=== PATIENT | female | born 1960 | race Caucasian/White ===

== ENCOUNTER 2018-04-16 18:59 | Emergency (ER) | payer OTHER ==
[~2018-04-16] VITALS: Ht 170.2 cm; Wt 54.9 kg
[~2018-04-16 18:59] MED LIST: BUTASPCAF PO; CODACE30 PO; GARLIC; GREEN TEA; METO10 PO; METPRE4DP PO; PRODEXEL PO; SULTRIDS PO; Ventolin/Prove6.7 GM INH; Zithromax250 MG PO
[2018-04-16] MEDS ORDERED: BENZ100A PO (19:11)
[2018-04-16] MEDS ORDERED: Mucinex600 MG PO (19:11)
[2018-04-16] MEDS ORDERED: ALBU90OI INH (19:11)
== END 2018-04-16 19:15 | disposition home or self-care (01) ==
LOC: ER 18:59
DX: J40 Bronchitis, not specified as acute or chronic (principal); F17.210 Nicotine dependence, cigarettes, uncomplicated; Z88.0 Allergy status to penicillin; Z88.5 Allergy status to narcotic agent; Z90.5 Acquired absence of kidney
CPT/HCPCS: 99283

== ENCOUNTER 2018-10-19 13:14 | Emergency (ER) | payer OTHER ==
[~2018-10-19] VITALS: Ht 167.6 cm; Wt 52.6 kg
[~2018-10-19 13:14] MED LIST changes: +ALBU90OI INH; +BENZ100A PO; +Mucinex600 MG PO
[2018-10-19] MEDS ORDERED: Ultram50 MG PO (14:32)
[2018-10-19] MEDS ORDERED: Voltaren100 GM TOP (14:32)
[2018-10-19] MEDS ORDERED: KETO10 PO (14:32)
== END 2018-10-19 14:41 | disposition home or self-care (01) ==
LOC: ER 13:14
DX: M16.11 Unilateral primary osteoarthritis, right hip (principal); Z88.5 Allergy status to narcotic agent; Z88.0 Allergy status to penicillin; F17.210 Nicotine dependence, cigarettes, uncomplicated
CPT/HCPCS: 73502; 96372; 99283-25; J1885

== ENCOUNTER 2019-03-02 11:15 | Emergency (ER) | payer OTHER ==
[~2019-03-02] VITALS: Ht 170.2 cm; Wt 53.1 kg
[~2019-03-02 11:15] MED LIST changes: +KETO10 PO; +Ultram50 MG PO; +Voltaren100 GM TOP
[2019-03-02] MEDS ORDERED: Chantix1 EACH (11:33)
== END 2019-03-02 13:16 | disposition home or self-care (01) ==
LOC: ER 11:15
DX: J02.9 Acute pharyngitis, unspecified (principal); Z88.5 Allergy status to narcotic agent; Z88.0 Allergy status to penicillin; Z87.891 Personal history of nicotine dependence
CPT/HCPCS: 87081; 87430; 99283; A9270-GY; J1100

== ENCOUNTER 2019-03-04 10:25 | Inpatient (IN) | payer OTHER ==
[~2019-03-04] VITALS: Ht 170.2 cm; Wt 53.8 kg
[~2019-03-04 10:25] MED LIST changes: +Chantix1 EACH
[2019-03-04 10:52] LABS: BASOPHILS ABSOLUTE AUTO 0.05 K/mm3 (0.00-0.23); BASOPHILS PERCENT AUTO 0 % (0-2); EOSINOPHILS ABSOLUTE AUTO 0.03 K/mm3 (0.00-0.68); EOSINOPHILS PERCENT AUTO 0 % (0-6); Hematocrit 44.8 % (33.0-51.0); IMMATURE GRAN ABSOLUTE AUTO 0.07 K/mm3 (0.00-0.10); IMMATURE GRAN PERCENT AUTO 1 % (0-1); LYMPHOCYTES ABSOLUTE AUTO 2.45 K/mm3 (0.84-5.20); LYMPHOCYTES PERCENT AUTO 16 % (21-46); MONOCYTES ABSOLUTE AUTO 1.87 K/mm3 (0.16-1.47); MONOCYTES PERCENT AUTO 12 % (4-13); Mean Corpuscular HGB 28.4 pg (26.0-34.0); Mean Corpuscular HGB Conc 31.3 g/dL (31.5-36.5); Mean Corpuscular Volume 91 fL (80-100); Mean Platelet Volume 9.5 fL (9.1-12.4); NEUTROPHILS ABSOLUTE AUTO 11.01 K/mm3 (1.96-9.15); NEUTROPHILS PERCENT AUTO 71 % (41-73); Platelet Count 316 K/mm3 (150-400); RDW Coefficient Variation 13.9 % (11.7-14.2); RDW Standard Deviation 46.8 fL (35.1-46.3); Red Blood Cell Count 4.93 M/mm3 (3.80-5.20); White Blood Cell Count 15.48 K/mm3 (4.00-11.30)
[2019-03-04 11:16] LABS: Alanine Aminotransfer (ALT/SGP 218 U/L (12-78); Albumin, Blood 3.2 g/dL (3.4-5.0); Albumin/Globulin Ratio 0.5 (0.8-1.8); Alk Phos 108 U/L (50-136); Anion Gap 6 mmol/L (6-16); Aspartate Aminotrans (AST/SGOT 147 U/L (12-37); Bilirubin, Total 0.6 mg/dL (0.1-1.0); Blood Urea Nitrogen 26 mg/dL (8-24); Bun/Creatinine Ratio 33.6 (12.0-20.0); CO2, Blood 23 mmol/L (21-32); Calcium, Blood 9.3 mg/dL (8.5-10.1); Chloride, Blood 106 mmol/L (98-108); Creatinine, Blood 0.77 mg/dL (0.40-1.00); Glomerular Filtration Rate >60 (60-); Glucose, Blood 109 mg/dL (70-99); Potassium, Blood 4.4 mmol/L (3.5-5.5); Sodium, Blood 135 mmol/L (136-145); Total Protein, Blood 9.2 g/dL (6.4-8.2)
--- NOTE | 2019-03-04 18:26 | NUR ---
SHIFT SUMMARY PATIENT ARRIVED TO UNIT BY WC. IV ACCESS. IV FLUIDS INFUSED WITHOUT ISSUE AT THIS TIME. PATIENT GENERALLY PLEASANT. COMPLAINTS OF PAIN WERE LOCALIZED TO THROAT. NO SOB AND VSS. REPORT RECEIVED FROM ED NURSE.
--- NOTE | 2019-03-05 04:07 | NUR ---
SHIFT SUMMARY NO ISSUES NOTED. PT HAD SOME DISCOMFORT AND TX PER EMAR. PT HAS SLEPT WELL T/O SHIFT. PT HAS ATE SOME W/O MUCH DIFFICULTY. PT THIS MORNING STATES SHE FEELS BETTER. PT CURRENTLY SLEEPING AND BREATHING EASY. CALL LIGHT IN REACH.
[2019-03-05 05:38] LABS: BASOPHILS ABSOLUTE AUTO 0.01 K/mm3 (0.00-0.23); BASOPHILS PERCENT AUTO 0 % (0-2); EOSINOPHILS PERCENT AUTO 0 % (0-6); Hematocrit 37.7 % (33.0-51.0); Hemoglobin 11.8 g/dL (11.5-16.0); IMMATURE GRAN ABSOLUTE AUTO 0.05 K/mm3 (0.00-0.10); IMMATURE GRAN PERCENT AUTO 0 % (0-1); LYMPHOCYTES ABSOLUTE AUTO 1.26 K/mm3 (0.84-5.20); LYMPHOCYTES PERCENT AUTO 11 % (21-46); MONOCYTES ABSOLUTE AUTO 0.94 K/mm3 (0.16-1.47); MONOCYTES PERCENT AUTO 8 % (4-13); Mean Corpuscular HGB 28.6 pg (26.0-34.0); Mean Corpuscular HGB Conc 31.3 g/dL (31.5-36.5); Mean Corpuscular Volume 92 fL (80-100); NEUTROPHILS ABSOLUTE AUTO 8.99 K/mm3 (1.96-9.15); NEUTROPHILS PERCENT AUTO 80 % (41-73); Platelet Count 267 K/mm3 (150-400); RDW Coefficient Variation 13.9 % (11.7-14.2); RDW Standard Deviation 47.1 fL (35.1-46.3); Red Blood Cell Count 4.12 M/mm3 (3.80-5.20); White Blood Cell Count 11.25 K/mm3 (4.00-11.30)
[2019-03-05 06:01] LABS: Alanine Aminotransfer (ALT/SGP 150 U/L (12-78); Albumin, Blood 2.5 g/dL (3.4-5.0); Albumin/Globulin Ratio 0.5 (0.8-1.8); Alk Phos 87 U/L (50-136); Anion Gap 8 mmol/L (6-16); Aspartate Aminotrans (AST/SGOT 85 U/L (12-37); Bilirubin, Total 0.3 mg/dL (0.1-1.0); Blood Urea Nitrogen 32 mg/dL (8-24); Bun/Creatinine Ratio 53.2 (12.0-20.0); CO2, Blood 20 mmol/L (21-32); Calcium, Blood 8.2 mg/dL (8.5-10.1); Chloride, Blood 112 mmol/L (98-108); Globulin, Blood 4.9 g/dL (2.2-4.0); Glomerular Filtration Rate >60 (60-); Glucose, Blood 189 mg/dL (70-99); Potassium, Blood 4.7 mmol/L (3.5-5.5); Sodium, Blood 140 mmol/L (136-145); Total Protein, Blood 7.4 g/dL (6.4-8.2)
--- NOTE | 2019-03-05 15:50 | NUR ---
Advance directive education/spiritual care visit conducted. Upon receiving an admit referral for advance directive education, I visit patient. I explain about the importance, content and process of the form and walk patient through the different sections and also provide a form for patient's life partner Beck. They display comprehension of the material and state they will fill it out and hand it in later. I then talk with Patient and Beck about their spiritual journey and hear of the pain and joys. I listen empathically, normalize patient's experience and provide spiritual guidance and prayer. Patient and Beck respond well and voice appreciation for the visit.
--- NOTE | 2019-03-05 18:04 | NUR ---
SUMMARY PT IS A/O X4, PLEASANT AFFECT, IND TO BR, UP AMBULATING IN [place]. SHE STATE CONTINUING SORE THROAT HOWEVER STATES MUCH IMPROVED, SHE HAS BEEN TOLERATING FULL LIQUID DIET W/O SIGNIFICANT PAIN, STATE EASIER TO SWALLOW WARM LIQUIDS SUCH SOUP RATHER THAN COLD. SHE HAS USED 1 DOSE FENTANYL 25MCG TODAY FOR PAIN RELIEF/CONTROL. IV ANTIBX CONTINUE W NS @ 100 ML/HR. VSS.
--- NOTE | 2019-03-05 18:26 | NUR ---
AFTER DINNER PT STATE INCREASING THROAT PAIN THAT RADIATES TO R EAR, 6/10, PRN FENTANYL 25MCG GIVEN.
--- NOTE | 2019-03-06 04:33 | NUR ---
SHIFT SUMMARY PT HAD SOME DISCOMFORT AND WAS TX PER EMAR. PT HAD NO OTHER ISSUES NOTED. PT SLEPT WELL T/O SHIFT. PT WENT FOR WALK ON UNIT BEFORE BED. PT IS EAGER TO GO HOME. PT CURRENTLY SLEEPING AND BREATHING EASY. CALL LIGHT IN REACH.
[2019-03-06] MEDS ORDERED: Vsl#3 Capsule1 EACH PO (09:38)
[2019-03-06] MEDS ORDERED: TRAM50 PO (09:38)
[2019-03-06] MEDS ORDERED: Clindamycin HC300 MG PO (09:39)
[2019-03-06] MEDS ORDERED: Prednisone10 MG PO (09:40)
--- NOTE | 2019-03-06 10:57 | NUR ---
SUMMARY/DISCHARGE DR ARAIZA IN TO SEE PT EARLY AM, STATE OK FOR D/C HOME TODAY. PT STATE FEELS READY TO GO HOME. NEW SCRIPTS FAXED TO [facility]. HARD COPY TRAMADOL SCRIPT PROVIDED TO PT. IV D/C INTACT. D/C INSTRUCT REVIEWED W PT, EMPHASIS ON F/U APPT W DR ALBARRAN (EENT). PT VERBALIZE UNDERSTANDING, SHE IS PLEASANT, APPRECIATIVE. STATE FRIEND WILL BE IN FOR TRANSPORTATION HOME, [employer] WILL PROVIDE W/C ESCORT FROM HOSP.
--- NOTE | 2019-03-06 13:08 | NUR ---
As patient and her fiance, Beck, are leaving after DC, I talk with them in the hallway. They mention the excellent care they have received and how they appreciate my visit with them yesterday. I help them find their way to where their car is parked.
== END 2019-03-06 11:55 | disposition home or self-care (01) | DRG 872 ==
LOC: ER 10:25 → MEDS 15:27 → ENPENDDIS 03-06 09:39 → MEDS 03-06 11:55
PROVIDERS: Emergency Medicine; Nurse Practitioner Acute Care; ADMIT Family Medicine
DX: A41.9 Sepsis, unspecified organism (principal); E87.1 Hypo-osmolality and hyponatremia; J36 Peritonsillar abscess; J44.9 Chronic obstructive pulmonary disease, unspecified; R74.0 Nonspecific elevation of levels of transaminase and lactic acid dehydrogenase [LDH]; M19.90 Unspecified osteoarthritis, unspecified site; E86.0 Dehydration; Z88.5 Allergy status to narcotic agent; Z88.0 Allergy status to penicillin; Z87.891 Personal history of nicotine dependence
CPT/HCPCS: 36415; 42700; 70491; 80053; 83605; 85025; 87040; 96361-59; 96365-59; 96367-59; 96375-59; 96376-59; 99285-25; J0696; J1100; J1650; J1885; J3010; J7030; Q9967

== ENCOUNTER 2019-07-16 19:46 | Emergency (ER) | payer OTHER ==
[~2019-07-16] VITALS: Ht 170.2 cm; Wt 54.9 kg
[~2019-07-16 19:46] MED LIST changes: +Chantix1 MG PO; +Clindamycin HC300 MG PO; +Prednisone10 MG PO; +TRAM50 PO; +Vsl#3 Capsule1 EACH PO
[2019-07-16] MEDS ORDERED: ALLERCLEAR10 MG PO (21:18)
[2019-07-16] MEDS ORDERED: KEFLEX500 MG PO (21:18)
== END 2019-07-16 21:27 | disposition home or self-care (01) ==
LOC: ER 19:46
DX: L73.9 Follicular disorder, unspecified (principal); L29.9 Pruritus, unspecified; Z88.0 Allergy status to penicillin; Z88.5 Allergy status to narcotic agent; Z87.891 Personal history of nicotine dependence
CPT/HCPCS: 99282; A9270-GY

== ENCOUNTER → 2021-02-04 | Outpatient (CLI) | payer OTHER ==
[~2021-02-04] MED LIST changes: +ALLERCLEAR10 MG PO; +ASPI81CH PO; +Amitriptyline H25 MG PO; +KEFLEX500 MG PO; +OXYC5 PO
== END | disposition home or self-care (01) ==
LOC: LAB SHORT 15:25 → LAB 15:25
DX: J02.9 Acute pharyngitis, unspecified (principal)
CPT/HCPCS: 87081

== ENCOUNTER → 2022-04-25 | Outpatient (CLI) | payer OTHER | END | disposition home or self-care (01) | LOC: LAB 14:56 → LAB SHORT 14:56 | DX: R82.90 Unspecified abnormal findings in urine (principal) | CPT/HCPCS: 87077; 87086; 87186 ==

== ENCOUNTER → 2022-07-31 | Outpatient (CLI) | payer OTHER ==
[2022-07-31 13:15] LABS: BASOPHILS ABSOLUTE AUTO 0.05 K/mm3 (0.00-0.23); BASOPHILS PERCENT AUTO 1 % (0-2); EOSINOPHILS ABSOLUTE AUTO 0.09 K/mm3 (0.00-0.68); EOSINOPHILS PERCENT AUTO 2 % (0-6); Hematocrit 42.2 % (33.0-51.0); Hemoglobin 13.7 g/dL (11.5-16.0); IMMATURE GRAN ABSOLUTE AUTO 0.01 K/mm3 (0.00-0.10); IMMATURE GRAN PERCENT AUTO 0 % (0-1); LYMPHOCYTES ABSOLUTE AUTO 2.38 K/mm3 (0.84-5.20); LYMPHOCYTES PERCENT AUTO 48 % (21-46); MONOCYTES ABSOLUTE AUTO 0.47 K/mm3 (0.16-1.47); MONOCYTES PERCENT AUTO 10 % (4-13); Mean Corpuscular HGB 29.1 pg (26.0-34.0); Mean Corpuscular HGB Conc 32.5 g/dL (31.5-36.5); Mean Corpuscular Volume 90 fL (80-100); NEUTROPHILS ABSOLUTE AUTO 1.95 K/mm3 (1.96-9.15); NEUTROPHILS PERCENT AUTO 39 % (41-73); Platelet Count 244 K/mm3 (150-400); RDW Standard Deviation 46.2 fL (35.1-46.3); White Blood Cell Count 4.95 K/mm3 (4.00-11.30)
[2022-07-31 13:20] LABS: Bun/Creatinine Ratio 50.5 (12.0-20.0); Calcium, Blood 9.1 mg/dL (8.5-10.1); Creatinine, Blood 0.95 mg/dL (0.40-1.00)
== END | disposition home or self-care (01) ==
LOC: LAB SHORT 13:11 → LAB 13:11
PROVIDERS: Chiropractor
DX: R00.0 Tachycardia, unspecified (principal)
CPT/HCPCS: 80048; 85025

== ENCOUNTER → 2023-03-08 | Outpatient (CLI) | payer OTHER | END | disposition home or self-care (01) | LOC: LAB SHORT 10:45 → LAB 10:45 | DX: N39.0 Urinary tract infection, site not specified (principal) | CPT/HCPCS: 87086 ==

== ENCOUNTER → 2023-04-09 | Outpatient (CLI) | payer OTHER ==
[2023-04-09 19:09] LABS: BASOPHILS ABSOLUTE AUTO 0.05 K/mm3 (0.00-0.23); BASOPHILS PERCENT AUTO 1 % (0-2); EOSINOPHILS ABSOLUTE AUTO 0.05 K/mm3 (0.00-0.68); EOSINOPHILS PERCENT AUTO 1 % (0-6); Hematocrit 39.7 % (33.0-51.0); Hemoglobin 12.9 g/dL (11.5-16.0); IMMATURE GRAN ABSOLUTE AUTO 0.01 K/mm3 (0.00-0.10); IMMATURE GRAN PERCENT AUTO 0 % (0-1); LYMPHOCYTES PERCENT AUTO 33 % (21-46); MONOCYTES ABSOLUTE AUTO 0.58 K/mm3 (0.16-1.47); MONOCYTES PERCENT AUTO 9 % (4-13); Mean Corpuscular HGB 28.9 pg (26.0-34.0); Mean Corpuscular HGB Conc 32.5 g/dL (31.5-36.5); Mean Corpuscular Volume 89 fL (80-100); Mean Platelet Volume 9.8 fL (9.1-12.4); NEUTROPHILS ABSOLUTE AUTO 3.61 K/mm3 (1.96-9.15); NEUTROPHILS PERCENT AUTO 56 % (41-73); Platelet Count 223 K/mm3 (150-400); RDW Coefficient Variation 14.1 % (11.7-14.2); RDW Standard Deviation 45.8 fL (35.1-46.3); Red Blood Cell Count 4.47 M/mm3 (3.80-5.20)
[2023-04-09 19:22] LABS: Albumin, Blood 3.1 g/dL (3.4-5.0); Albumin/Globulin Ratio 0.5 (0.8-1.8); Bilirubin, Total 0.2 mg/dL (0.1-1.0); Bun/Creatinine Ratio 30.2 (12.0-20.0); Calcium, Blood 8.9 mg/dL (8.5-10.1); Creatinine, Blood 1.39 mg/dL (0.40-1.00); Globulin, Blood 5.7 g/dL (2.2-4.0); Potassium, Blood 4.8 mmol/L (3.5-5.5); Total Protein, Blood 8.8 g/dL (6.4-8.2)
== END ==
LOC: LAB SHORT 19:04 → LAB 19:04
PROVIDERS: Physician Assistant Medical
DX: R11.2 Nausea with vomiting, unspecified (principal); R10.13 Epigastric pain
CPT/HCPCS: 80053; 83690; 85025

== ENCOUNTER 2024-03-03 05:45 | Day surgery (SDC) | payer OTHER ==
[~2024-03-03] VITALS: Ht 167 cm; Wt 52.0 kg
[2024-03-03] VITALS (7 sets, daily range): BP systolic 110–169; BP diastolic 65–91
[~2024-03-03 05:45] MED LIST changes: +CEPH500 PO; +Norco 5-325 Ta1 EACH PO; +PHENA200 PO
[2024-03-03] MEDS ORDERED: Lactated Ringer's 1,000 ML IV SCH (06:30)
[2024-03-03] MEDS ORDERED: Bupivacaine 0.5% HCl 5 MG/ML 30MLVIAL ONE (06:54)
[2024-03-03] MEDS ORDERED: Midazolam HCl 1MG / ML 2ML Vial IV ONE (07:10)
[2024-03-03] MEDS ORDERED: Lidocaine HCl 2% 20 ML MDV ONE (07:20)
[2024-03-03] MEDS ORDERED: FentaNYL Citrate 50 MCG/ML 2 ML Injection ONE ×2 (07:20→07:41)
[2024-03-03] MEDS ORDERED: propofoL 20 ML IV ONE (07:20)
[2024-03-03] MEDS ORDERED: Ketorolac Tromethamine 30mg Vial ONE (07:49)
[2024-03-03] MEDS ORDERED: Dexamethasone Sod Phos 10 MG/ML 1ML VIAL ONE (07:49)
[2024-03-03] MEDS ORDERED: Ondansetron HCl 2 MG / ML 2ML Vial ONE (07:49)
[2024-03-03] MEDS ORDERED: HYDROcodone 5-APAP 325 TAB PO PRN (08:25)
--- NOTE | 2024-03-03 09:18 | NUR ---
Discharge instructions reviewed with patient. Patient verbalizes understanding. Copy given to patient to take home. Dressing c/d/i. Patient States Post-Procedure ride home has been arranged. Discharged via wheelchair to private car for ride home.
== END 2024-03-03 09:21 | disposition home or self-care (01) ==
LOC: ORSCMMR 05:45 → ORD 07:30 → ORSCMMR 07:30
PROVIDERS: Surgery
PROC: 0WQF0ZZ Repair Abdominal Wall, Open Approach (ICD-10-PCS; principal; 2024-03-03 07:30)
DX: K43.0 Incisional hernia with obstruction, without gangrene (principal); F17.210 Nicotine dependence, cigarettes, uncomplicated
CPT/HCPCS: A9270; J1100; J1885; J2250; J2405; J2704; J3010; J7120

== ENCOUNTER 2024-03-24 10:26 | Day surgery (SDC) | payer OTHER ==
[~2024-03-24] VITALS: Ht 170.2 cm; Wt 51.4 kg
[~2024-03-24 10:26] MED LIST changes: +Lactated Ringer's 1,000 ML IV SCH; +OMEP20ER PO
[2024-03-24] MEDS ORDERED: propofoL 20 ML IV ONE ×3 (12:18→12:41)
[2024-03-24] MEDS ORDERED: Benzocaine Oral Spray 0.5ML UD ONE (12:31)
--- NOTE | 2024-03-24 12:37 | NUR ---
03/24/24 1237 Ana Malcolm 1225- MONITOR INTACT WITH CONTINUOUS PULSE OXIMETRY, CONTINUOUS END TITAL CO2, AND INTERMITTENT BLOOD PRESSURE.
[2024-03-24 13:18] VITALS: BP 117/84
== END 2024-03-24 13:40 | disposition home or self-care (01) ==
LOC: ORSCMMR 10:26 → ORD 11:30 → ORSCMMR 11:30
PROVIDERS: Surgery
PROC: 0DB98ZX Excision of Duodenum, Via Natural or Artificial Opening Endoscopic, Diagnostic (ICD-10-PCS; principal; 2024-03-24 11:30)
PROC: 0DBH8ZX Excision of Cecum, Via Natural or Artificial Opening Endoscopic, Diagnostic (ICD-10-PCS; principal; 2024-03-24 11:30)
DX: D50.0 Iron deficiency anemia secondary to blood loss (chronic) (principal); K92.1 Melena; K29.80 Duodenitis without bleeding; K29.60 Other gastritis without bleeding; K63.5 Polyp of colon; F17.210 Nicotine dependence, cigarettes, uncomplicated; Z79.899 Other long term (current) drug therapy
CPT/HCPCS: 88302; 88305; 88342; A9270; J2704; J7120

== ENCOUNTER 2024-06-19 08:36 | Day surgery (SDC) | payer OTHER ==
[~2024-06-19] VITALS: Ht 170.2 cm; Wt 48.5 kg
[~2024-06-19 08:36] MED LIST changes: +Atropine Sulfate 0.1 MG/ML 10ML SYR ONE; +Glycopyrrolate 0.2 MG/ML 1MLVIAL ONE; +Lactated Ringer's 1,000 ML IV ONE; -Lactated Ringer's 1,000 ML IV SCH; +Lidocaine 2% 5 ML SDV ONE; +Lidocaine HCl/Pf 1% 5 ML VIAL ONE; +Methylene Blue 1% 100 MG/10 ML VIAL ONE; +Ondansetron HCl 2 MG / ML 2ML Vial ONE; +ePHEDrine Sulfate 50 MG/ML 1ML Injection ONE; +propofoL 50 ML IV ONE
[2024-06-19] MEDS ORDERED: Lactated Ringer's 1,000 ML IV ONE (09:22)
[2024-06-19 11:08] VITALS: BP 141/98
== END 2024-06-19 11:08 | disposition home or self-care (01) ==
LOC: ORSCSDS 08:36
PROVIDERS: Surgery
PROC: 0DB68ZX Excision of Stomach, Via Natural or Artificial Opening Endoscopic, Diagnostic (ICD-10-PCS; principal; 2024-06-19 10:15)
PROC: 0DB98ZX Excision of Duodenum, Via Natural or Artificial Opening Endoscopic, Diagnostic (ICD-10-PCS; principal; 2024-06-19 10:15)
DX: D50.0 Iron deficiency anemia secondary to blood loss (chronic) (principal); K92.1 Melena; Z87.11 Personal history of peptic ulcer disease; N18.9 Chronic kidney disease, unspecified; M19.90 Unspecified osteoarthritis, unspecified site; M06.9 Rheumatoid arthritis, unspecified; F17.210 Nicotine dependence, cigarettes, uncomplicated; Z79.899 Other long term (current) drug therapy
CPT/HCPCS: 88305; 88342; J0461; J2003; J2405; J2704; J7120; Q9968

== ENCOUNTER → 2024-09-08 | Outpatient (CLI) | payer OTHER ==
[~2024-09-08] MED LIST changes: -Atropine Sulfate 0.1 MG/ML 10ML SYR ONE; -Glycopyrrolate 0.2 MG/ML 1MLVIAL ONE; -Lactated Ringer's 1,000 ML IV ONE; -Lidocaine 2% 5 ML SDV ONE; -Lidocaine HCl/Pf 1% 5 ML VIAL ONE; -Methylene Blue 1% 100 MG/10 ML VIAL ONE; -Ondansetron HCl 2 MG / ML 2ML Vial ONE; -ePHEDrine Sulfate 50 MG/ML 1ML Injection ONE; -propofoL 50 ML IV ONE
[2024-09-08 12:12] LABS: BASOPHILS ABSOLUTE AUTO 0.04 K/mm3 (0.00-0.23); BASOPHILS PERCENT AUTO 0 % (0-2); EOSINOPHILS ABSOLUTE AUTO 0.01 K/mm3 (0.00-0.68); EOSINOPHILS PERCENT AUTO 0 % (0-6); Hematocrit 28.5 % (33.0-51.0); Hemoglobin 8.9 g/dL (11.5-16.0); IMMATURE GRAN ABSOLUTE AUTO 0.13 K/mm3 (0.00-0.10); IMMATURE GRAN PERCENT AUTO 1 % (0-1); LYMPHOCYTES ABSOLUTE AUTO 2.01 K/mm3 (0.84-5.20); LYMPHOCYTES PERCENT AUTO 13 % (21-46); MONOCYTES ABSOLUTE AUTO 1.53 K/mm3 (0.16-1.47); MONOCYTES PERCENT AUTO 10 % (4-13); Mean Corpuscular HGB Conc 31.2 g/dL (31.5-36.5); Mean Corpuscular Volume 83 fL (80-100); NEUTROPHILS ABSOLUTE AUTO 11.80 K/mm3 (1.96-9.15); NEUTROPHILS PERCENT AUTO 76 % (41-73); NRBC ABSOLUTE 0.00 K/mm3 (0.00-0.02); NRBC Auto 0.0 /100 WBC (0.0-0.2); Platelet Count 245 K/mm3 (150-400); RDW Coefficient Variation 17.1 % (11.7-14.2); RDW Standard Deviation 51.6 fL (35.1-46.3)
[2024-09-08 12:30] LABS: Alanine Aminotransfer (ALT/SGP 126.0 U/L (12-78); Albumin, Blood 2.7 g/dL (3.4-5.0); Albumin/Globulin Ratio 0.5 (0.8-1.8); Anion Gap 14.0 mmol/L (3-11); Aspartate Aminotrans (AST/SGOT 120.0 U/L (12-37); Bilirubin, Total 0.4 mg/dL (0.1-1.0); Blood Urea Nitrogen 38.0 mg/dL (8-24); CO2, Blood 23.0 mmol/L (21-32); Calcium, Blood 8.2 mg/dL (8.5-10.1); Chloride, Blood 99.0 mmol/L (98-108); Creatinine, Blood 1.02 mg/dL (0.40-1.00); Globulin, Blood 5.0 g/dL (2.2-4.0); Glucose, Blood 102.0 mg/dL (70-99); Potassium, Blood 5.0 mmol/L (3.5-5.5); Sodium, Blood 131.0 mmol/L (136-145); Total Protein, Blood 7.7 g/dL (6.4-8.2)
== END ==
LOC: LAB 12:07 → LAB SHORT 12:07
PROVIDERS: Physician Assistant
DX: R82.81 Pyuria (principal)
CPT/HCPCS: 80053; 82550; 85025; 85651

== ENCOUNTER → 2024-09-18 | Outpatient (CLI) | payer OTHER ==
[~2024-09-18] MED LIST changes: +Nitrofurantoin100 M1 PO
== END ==
LOC: LAB 15:52 → LAB SHORT 15:52
DX: R10.9 Unspecified abdominal pain (principal)
CPT/HCPCS: 87086

== ENCOUNTER 2024-09-21 04:07 | Emergency (ER) | payer OTHER ==
[~2024-09-21] VITALS: Ht 170.2 cm; Wt 45.4 kg
[~2024-09-21 04:07] MED LIST changes: -Nitrofurantoin100 M1 PO
[2024-09-21] MEDS ORDERED: Nitrofurantoin100 M1 PO (04:38)
[2024-09-21 05:00] VITALS: BP 131/77
[2024-09-21] MEDS ORDERED: OxyCODONE 5 mg/Acetamin 325 mg TABLET PO ONE (05:20)
[2024-09-21] MEDS ORDERED: RX Prepack 6 Tabs Oxycodone 5mg UD ONE (06:05)
== END 2024-09-21 06:20 | disposition home or self-care (01) ==
LOC: ER 04:07
DX: M25.551 Pain in right hip (principal); Z96.641 Presence of right artificial hip joint; Z87.440 Personal history of urinary (tract) infections
CPT/HCPCS: 73502; 99283-25; A9270

== ENCOUNTER 2024-11-01 17:09 | Emergency (ER) | payer OTHER ==
[~2024-11-01] VITALS: Ht 170.2 cm; Wt 46.3 kg
[~2024-11-01 17:09] MED LIST changes: +Nitrofurantoin100 M1 PO
[2024-11-01] MEDS ORDERED: FentaNYL Citrate 50 MCG/ML 2 ML Injection IV PRN (17:15)
[2024-11-01] MEDS ORDERED: NS 1,000 ML IV SCH (17:15)
[2024-11-01] MEDS ORDERED: Propofol 10mg/ml 20 ml Vial (Procedural) IV ONE (18:00)
[2024-11-01] MEDS ORDERED: ONDA4ODT MM (18:26)
[2024-11-01 19:51] VITALS: BP 146/91
== END 2024-11-01 19:51 | disposition home or self-care (01) ==
LOC: ER 17:09
DX: T84.020A Dislocation of internal right hip prosthesis, initial encounter (principal); S51.812A Laceration without foreign body of left forearm, initial encounter; W18.30XA Fall on same level, unspecified, initial encounter
CPT/HCPCS: 27265; 73501; 73502; 90471; 90715; 96374-59; 99152; 99284-25; J2704; J3010; J7030